=== PATIENT | male | born 1970 ===

== ENCOUNTER 2021-07-12 13:41 | Emergency (ER) | payer OTHER, SELFPAY ==
[2021-07-12 13:58] VITALS: BP 146/94; PULSE 93; RESP 16; TEMP 36.9; O2SAT 100
[2021-07-12 15:36] VITALS: BP 125/83; PULSE 88; RESP 16; TEMP 36.3; O2SAT 100
--- NOTE | 2021-07-12 18:36 | ECG_ITS ---
Measurements Intervals [place] Rate: 83 P: 48 MS: 178 QRS: -47 QRSD: 109 T: 23 QT: 378 QTc: 446 Interpretive Statements SINUS RHYTHM LEFT AXIS DEVIATION [QRS AXIS < -30] PATTERN CONSISTENT WITH PULMONARY DISEASE BORDERLINE ECG NO PREVIOUS ECG AVAILABLE FOR COMPARISON Electronically Signed On 07-13-2021 13:08:18 COPYWRITING INTERN by Richard Irving M.D.
--- NOTE | 2021-07-12 18:38 | ED.GENADULT ---
HPI - General Adult General Chief complaint: Unspecified Stated complaint: feels dehydrated Time Seen by Provider: 07/12/21 18:34 Source: patient Mode of arrival: ambulatory Limitations: no limitations History of Present Illness HPI narrative: Patient is a 50-year-old male complaining of I am dehydrated and tingling of his hands that started few days ago. 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 Patient denies any chest pain, shortness of breath, abdominal pain, nausea, vomiting, diarrhea, fever or chills. Related Data Home Medications Medication Instructions Recorded Confirmed lisinopril 10 mg PO DAILY 07/12/21 Allergies Allergy/AdvReac Type Severity Reaction Status Date / Time codeine AdvReac Mild NAUSEA Verified 07/12/21 18:35 Review of Systems Review of Systems: All systems reviewed & are unremarkable except as noted in HPI and below Constitutional: Constitutional: Denies body ache(s), Denies chills, Denies excessive sweating, Denies fatigue, Denies fever(s), Denies headache(s), Denies lethargy, Denies malaise, Denies weakness and Denies weight loss Eyes: Eyes: Denies blurry vision, Denies change in vision and Denies loss of vision ENT: Denies dizziness, Denies ear discharge, Denies headache(s), Denies lip swelling, Denies epistaxis, Denies nasal congestion, Denies neck pain, Denies throat swelling and Denies tongue swelling Cardiovascular: Cardiovascular: Denies chest pain, Denies chest pain at rest, Denies chest pain with activity, Denies diaphoresis, Denies rapid heart rate, Denies edema, Denies irregular heart rhythm, Denies lightheadedness, Denies palpitations, Denies dyspnea and Denies dyspnea on exertion Respiratory: Respiratory: Denies chest congestion, Denies cough, Denies hemoptysis, Denies dyspnea and Denies dyspnea on exertion Gastrointestinal: Gastrointestinal: Denies abdominal pain, Denies melena, Denies hematochezia, Denies diarrhea, Denies nausea, Denies vomiting and Denies hematemesis Musculoskeletal: Musculoskeletal: Denies abnormal gait, Denies deformity, Denies joint swelling, Denies limited range of motion, Denies neck pain and Denies numbness Neurologic: Denies Abnormal speech present, Denies abnormal gait, Denies confusion, Denies dizziness, Denies headache(s), Denies focal weakness, Denies loss of vision, Denies numbness, Denies Other visual disturbances, Denies Sensory deficit (Neuro) and Denies weakness Psychiatric: Psychiatric: Denies confusion, Denies depression, Denies auditory hallucinations, Denies homicidal ideation and Denies suicidal ideation Endocrine: Endocrine: Denies cold intolerance, Denies excessive sweating, Denies fatigue, Denies heat intolerance and Denies palpitations Hematologic/Lymphatic: Hematologic/Lymphatic: Denies easy bleeding and Denies easy bruising Allergic/Immunologic: Allergic/Immunologic: Denies lip swelling, Denies throat swelling and Denies tongue swelling PMFSH Family History Family History Grandparent Family history of malignant neoplasm of breast in first degree relative Other Cerebrovascular accident Diabetes mellitus Family history of allergic disorder Family history of blood dyscrasia Social History Social History Smoking status: Heavy tobacco smoker Alcohol intake: current Comments Past medical history: Hypertension Exam Const: General: cooperative, healthy appearing, comfortable, no acute distress, well developed, alert and awake; No confusion Orientation/consciousness: oriented to person, oriented to place, oriented to time, patient oriented x3 and No confusion Limitations: no limitations HENMT: Head: normal to inspection, normocephalic and atraumatic Ears: hearing grossly normal
[2021-07-12] MEDS: SODIUM CHLORIDE 0.9% IV 1,000 ML 999 ML IV CONT (19:03)
[2021-07-12 19:10] LABS: Basophils Absolute Auto 0.1 K/mm3 (0.0-0.1); Basophils Percent Auto 0.7 % (0.2-1.2); Eosinophils Absolute Auto 0.8 K/mm3 (0-0.3); Eosinophils Percent Auto 11.2 % (0-4.4); Hematocrit 46.1 % (42.0-52.0); Hemoglobin 15.1 g/dL (14.0-18.0); Immature Granulocyte Absolute 0.01 K/mm3 (0.00-0.031); Immature Granulocyte Percent A 0.1 % (0-0.5); Lymphocytes Absolute Auto 2.51 K/mm3 (0.9-3.2); Lymphocytes Percent Auto 34.3 % (18.3-44.2); Mean Corpuscular HGB Conc 32.8 g/dl (32-36); Mean Corpuscular Hemoglobin 29.7 pg (26-34); Mean Corpuscular Volume 90.6 fl (80-100); Mean Platelet Volume 8.9 fl (7.4-10.4); Monocytes Absolute Auto 0.6 K/mm3 (0.1-0.6); Monocytes Percent Auto 7.8 % (2.6-8.5); Neutrophils Absolute Auto 3.4 K/mm3 (1.3-6.7); Neutrophils Percent Auto 45.9 % (45.5-73.1); Platelet Count Result 286 k/mm3 (150-375); Red Blood Count 5.09 M/mm3 (4.6-6.20); Red Cell Distribution Width 12.6 % (11.5-14.5); White Blood Count 7.3 K/mm3 (4.5-10.0)
[2021-07-12 19:20] LABS: Alanine Aminotransferase 25 U/L (4-50); Albumin Level 4.3 g/dL (3.5-5.1); Alkaline Phosphatase 93 U/L (38-126); Anion Gap 6 mmol/L (8-16); Aspartate Amino Transferase 32 U/L (17-59); Bilirubin,Total 0.6 mg/dL (0.2-1.3); Blood Urea Nitrogen 17 mg/dL (9-20); Calcium 9.1 mg/dL (8.4-10.2); Carbon Dioxide 30 mmol/L (22-30); Chloride 101 mmol/L (98-107); Estimated CRCL calculation 74 ml/min; Estimated Glomerular Filt Rate > 60; Glucose 110 mg/dL (65-110); Potassium 3.4 mmol/L (3.4-5.0); Sodium 137 mmol/L (137-145)
[2021-07-12 21:00] VITALS: BP 147/95; PULSE 81; RESP 16; O2SAT 100
== END 2021-07-12 21:05 | disposition home or self-care (01) ==
LOC: ANHED 19:57
PROVIDERS: Emergency Provider Emergency Medicine
DX: E86.0 Dehydration (principal); F43.9 Reaction to severe stress, unspecified; F17.200 Nicotine dependence, unspecified, uncomplicated; R94.31 Abnormal electrocardiogram [ECG] [EKG]
CPT/HCPCS: 36415; 80053; 85025; 93005; 96360; 96372; 99283; J1100; J7030

== ENCOUNTER 2024-10-21 01:09 | Emergency (ER) | payer BC, SELFPAY ==
[2024-10-21 01:13] VITALS: BP 129/80; PULSE 96; RESP 18; O2SAT 97
[2024-10-21 01:27] VITALS: BP 129/80; PULSE 94; RESP 18; TEMP 36.5; O2SAT 97
--- OUTSIDE RECORDS SUMMARY | 2024-10-21 01:38 | XMS_ITS | Patient Health Record ---
Author Organization Formerly [facility] Address [address] [place] [address] Care Team Providers Care Marble Mason Name Role Phone Cee Lau Primary Care Provider [phone] Tera Valentino Unavailable [phone] Kierra Jimenez Unavailable [phone] Shirin Bustillos Unavailable [phone] Allergies No Known Allergies Results Component Value Reference Range Notes Hepatitis C Virus Antibody w /Rflx to Quantitative Real-time PCR ([id number]) (Not yet reviewed by provider) Interpretation: Performing Lab:[facility] [address] [facility], Phone - [phone], Director - [facility] Notes/Report: HCV Ab Non Reactive Non Reactive Interpretation: Not infected with HCV unless early or acute infection is suspected (which may be delayed in an immunocompromised individual), or other evidence exists to indicate HCV infection. Hepatitis B Surface Antigen (HBsAg Screen) (Not yet reviewed by provider) Interpretation: Performing Lab:[facility] [address] [facility], Phone - [phone], Director - [facility] Notes/Report: HBsAg Screen Negative Negative TSH+Free T4* (Not yet review ed by provider) Interpretation: Performing Lab:[facility] [address] [facility], Phone - [phone], Director - [facility] Notes/Report: TSH 1.580 0.450-4.500 uIU/mL T4,Free(Direct) 1.20 0.82-1.77 ng/dL Hemoglobin A1c* (Not yet rev iewed by provider) Interpretation: Performing Lab:[facility] [address], [place], Phone - [phone], Director - [facility] Notes/Report: Hemoglobin A1c 5.6 4.8-5.6 % . Prediabetes: 5.7 - 6.4 Diabetes: >6.4 Glycemic control for adults with diabetes: <7.0 Lipid Panel* (Not yet review ed by provider) Interpretation: Performing Lab:[facility] [place], [address] [facility], Phone - [phone], Director - [facility] Notes/Report: Cholesterol, Total 187 100-199 mg/dL Triglycerides 116 0-149 mg/dL HDL Cholesterol 56 >39 mg/dL VLDL Cholesterol Kalin 21 5-40 mg/dL LDL Chol Calc (NIH) 110 0-99 mg/dL 12 Panel Urine Drug Screen Reviewed date:10/08/2024 12:00:13 PM Interpretation: Performing Lab: Notes/Report: THC pos MAXIMUS neg MOP (OPI) neg AMP neg MET pos BAR neg BZO neg MDMA neg MTD neg OXY neg PCP neg BUP neg Breathalyzer Reviewed date:10/08/2024 02:11:40 PM Interpretation: Performing Lab: Notes/Report: OLIVER o.oo QuantiFERON-TB Gold Plus ([id number]) (Not yet reviewed by provider) Interpretation: Performing Lab:[facility] [place], [address] [facility], [place], Phone - [phone], [facility] Notes/Report: QuantiFERON Incubation Incubation performed. QuantiFERON-TB Gold Plus Negative Negative No response to M tuberculosis antigens detected. Infection with M tuberculosis is unlikely, but high risk individuals should be considered for additional testing (ATS/IDSA/CDC Clinical Practice Guidelines, 2017). The reference range is an Antigen minus Nil result of <0.35 IU/mL. Chemiluminescence immunoassay methodology QuantiFERON Criteria QuantiFERON-TB Gold Plus is a qualitative indirect test for M tuberculosis infection (including disease) and is intended for use in conjunction with risk assessment, radiography, and other medical and diagnostic evaluations. The QuantiFERON-TB Gold Plus result is determined by subtracting the Nil value from either TB antigen (Ag) value. The Mitogen tube serves as a control for the test. QuantiFERON TB1 Ag Value 0.11 QuantiFERON TB2 Ag Value 0.12 QuantiFERON Nil Value 0.10 QuantiFERON Mitogen Value >10.00 CBC With Differential/Platel et* (Not yet reviewed by provider) Interpretation: Performing Lab:[facility] [place], [address] [facility], Phone - [phone], Director - [facility] Notes/Report: WBC 8.1 3.4-10.8 x10E3/uL RBC 4.76 4.14-5.80 x10E6/uL Hemoglobin 13.9 13.0-17.7 g/dL Hematocrit 43.0 37.5-51.0 % MCV 90 79-97 fL MCH 29.2 26.6-33.0 pg MCHC 32.3 31.5-35.7 g/dL RDW 12.4 11.6-15.4 % Platelets 294 150-450 x10E3/uL Neutrophils 47 Not Estab. % Lymphs 37 Not Estab. % Monocytes 8 Not Estab. % Eos 7 Not Estab. % Basos 1 Not Estab. % Neutrophils (Absolute) 3.8 1.4-7.0 x10E3/uL Lymphs (Absolute) 3.0 0.7-3.1 x10E3/uL Monocytes(Absolute) 0.7 0.1-0.9 x10E3/uL Eos (Absolute) 0.6 0.0-0.4 x10E3/uL Baso (Absolute) 0.1 0.0-0.2 x10E3/uL Immature Granulocytes 0 Not Estab. % Immature Grans (Abs) 0.0 0.0-0.1 x10E3/uL CMP 14 Comprehensive Metabol ic Panel* (Not yet reviewed by provider) Interpretation: Performing Lab:[facility] [place], [address] [facility], Phone - [phone], Director - [facility] Notes/Report: Glucose 95 70-99 mg/dL BUN 15 6-24 mg/dL Creatinine 0.88 0.76-1.27 mg/dL eGFR 103 >59 mL/min/1.73 BUN/Creatinine Ratio 17 9-20 Sodium 141 134-144 mmol/L Potassium 4.9 3.5-5.2 mmol/L Chloride 106 96-106 mmol/L Carbon Dioxide, Total 21 20-29 mmol/L Calcium 9.2 8.7-10.2 mg/dL Protein, Total 6.6 6.0-8.5 g/dL Albumin 4.3 3.8-4.9 g/dL Globulin, Total 2.3 1.5-4.5 g/dL Bilirubin, Total 0.3 0.0-1.2 mg/dL Alkaline Phosphatase 117 44-121 IU/L AST (SGOT) 17 0-40 IU/L ALT (SGPT) 12 0-44 IU/L HIV Screen *HIV 1, 2 Ab, p24 Ag ([id number]) (Not yet reviewed by provider) Interpretation: Performing Lab:[facility], [address] [facility], [place], Phone - [phone], Director - [facility] Notes/Report: HIV Ab/p24 Ag Screen Non Reactive Non Reactive HIV-1/HIV-2 antibodies and HIV-1 p24 antigen were NOT detected. There is no laboratory evidence of HIV infection. HIV Negative Reason For Referral No Information Medications Medication SIG (Take, Route, Frequency, Duration) Notes Start Date End Date Status OLANZapine 5 MG 1 tablet Orally at b edtime for 30 days Active Melatonin 5 MG 1 tablet at bedtime as needed Orally Once a day for 30 days 10/08/2024 Active buPROPion HCl ER (XL) 150 MG 1 tablet in the morning Orally Once a day for 30 days Active traZODone HCl 50 MG 1 tablet at bedtime as needed Orally Once a day for 30 days Active amLODIPine Besylate 10 MG 1 tablet Orall y Once a day for 30 days Active Nicotine Polacrilex 4 MG 1 lozenge as ne eded for nicotine cravings Mouth/Throat Up to once per hour (maximum of 15 lozenges per day) for 7 days 10/08/2024 Active hydrOXYzine HCl 25 MG 1-2 capsules Orall y every 4 hours as needed for anxiety, agitation, or inability to sleep. Do not given within 4 hours of diphenhydramine for 5 days 10/08/2024 Activ e Ketoconazole 2 % apply on both dry an d clean feet Externally Once a day for 14 days 10/15/2024 Active Multi Vitamin - 1 tablet Orally Once a day for 30 days 10/08/2024 Active Social History Tobacco Use: Social History Observation Description Date Details (start date - stop date) Current Smoker NA - NA Sex Assigned At : Social History Observation Description Sex Assigned At Male PRAPARE Question Answer Notes Date Completed/Updated: 10/08/2024 What is your current housing situation? I do not have housing (staying with others, in a hotel, in a intermediate, living outside on the street, on a beach, or in a park) Are you worried about losing your housing? Yes What is the highest level of school that you have finished? Less than a high school degree What is your current work situation? Oth erwise unemployed but not seeking work (ex. 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 Check all that apply Food,Medicine or any health care (medical, dental, mental health or vision),Other (please write in notes) Has lack of transportation k ept you from medical appointments, meetings, work or from getting things needed for daily living? Yes, it has kept me from medical appointments or from getting my medications,Yes, it has kept me from non-medical meetings, appointments, work, or getting things needed for daily living How often do you see or talk to people that you care about and feel close to? (For example: talking to friends on the phone, visiting friends or family, going to episcopalian or club meetings) 1 or 2 times a week How stressed are you? Stress is when someone feels tense, nervous, anxious, or can\t sleep at night because their mind is troubled Quite a bit In the past year have you sp ent more than 2 nights in a row in a fdc, assisted, halfway center, or juvenile correctional facility? Yes What was your release date? 09/19/2024 Are you a refugee? I choose not to answer this q uestion What country are you from? I choose not to answe r this question Do you feel physically and e motionally safe where you currently live? No In the past year, have you b een afraid of your partner or ex-partner? Yes PRAPARE Score: 17 Enabling Services Provided? Yes Please specify Case Management Appointment Made Tobacco Control (Standard) Question Answer Notes Tobacco use: Current smoker Problems Problem Type SNOMED Code ICD Code Onset Dates Problem Status W/U Status Risk Notes Problem Hypertension (27974810) Hypertension (I10) Active confirmed Problem Posttraumatic stress disorder (04321681) PTSD (post-traumatic stress disorder) (F43.10) Active confirmed Problem Overweight (929300505) Over weight (E66.3) Active confirmed Problem Severe recurrent major depression without psychotic features (46187674) MDD (major depressive disorder), recurrent episode, severe (F33.2) Active confirmed Problem Methamphetamine abuse (574809988) Methamphetamine abuse (F15.10) Active confirmed Problem Adult health examination (987787098) Adult general medical exam (Z00.00) Active confirmed Problem Tobacco user (563917266) Nicotine dependence with current use (F17.200) Active confirmed Problem Schizophrenia (55449877) Unspecified schizophrenia, unspecified condition (F20.9) Active confirmed Problem Stimulant dependence (133574149) Amphetamine use disorder, 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) Active confirmed Vital Signs Heart Rate 84 /min 10/15/2024 Temperature 97.9 degrees Fahrenheit 10/15/2024 Respiratory Rate 20 /min 10/15/2024 Blood pressure diastolic 80 mm Hg 10/15/2024 Oximetry 98 % 10/15/2024 Height 72 in 10/15/2024 Blood pressure systolic 122 mm Hg 10/15/2024 Weight 185.0 lbs 10/15/2024 BMI 25.09 kg/m2 10/15/2024 Encounters Encounter Location Date Provider Diagnosis [facility] [place] [address] 10/08/2024 Cee Lau Adult general medica l exam Z00.00 and Nicotine dependence with current use F17.[address] [address] 10/08/2024 Shirin Busitllos PTSD (post-traumatic stress disorder) F43.10 ; MDD (major depressive disorder), recurrent episode, severe F33.2 and Methamphetamine abuse F15.[address] [place] [address] 10/10/2024 Kierra Jimenez Unspecified schizophrenia, unspecified condition F20.9 ; PTSD (post-traumatic stress disorder) F43.10 ; MDD (major depressive disorder), recurrent episode, severe F33.2 and Amphetamine use disorder, moderate F15.20 [facility] [address] [place] [address] 10/15/2024 Cee Lau Over weight E66.3 ; Tinea pedis of both feet B35.3 ; Adult general medical exam Z00.00 ; Screening for diabetes mellitus Z13.1 ; Screening for metabolic disorder Z13.228 ; Exposure to potential infection Z20.9 ; Screening for thyroid disorder Z13.29 and Nicotine dependence with current use F17.[address] [place] [address] 07/31/2024 Tera Valentino [facility] [address] [place] [address] [place] [address] 10/15/2024 Cee Lau Assessments Encounter Date Diagnosis (ICD Code) Assessment Notes Treatment Notes Treatment Clinical Notes Section Notes 10/15/2024 Over weight (ICD-10 - E66.3) 10/15/2024 Tinea pedis of both feet (ICD-10 - B35.3) 10/10/2024 PTSD (post-traumatic stress disorder) (ICD-10 - F43.10) 10/10/2024 Unspecified schizophrenia, unspecified condition (ICD-10 - F20.9) Restart previous medications for mental health. Continued Amlodapine order sent from previous PCP appointment. Continue services as scheduled. Labs completed recently. May self-administer medications or be administered own oral medications per [place] protocols. Provided informed consent with understanding of side effects, adverse effects, risks and benefits as well as alternative treatments as previously discussed and with the above recommended medications & other aspects of the treatment program. Agrees to return sooner if symptoms worsen or suicidal or homicidal ideations occur. 10/08/2024 PTSD (post-traumatic stress disorder) (ICD-10 - F43.10) 10/08/2024 MDD (major depressive disorder), recurrent episode, severe (ICD-10 - F33.2) 10/08/2024 Adult general medical exam (ICD-10 - Z00.00) Admit to the Mental Health/Crisis Residential Unit and initiate standing/protocol orders: The following PRN medications may be self-administered by patients under the supervision of approved staff or administered by nursing staff: Ibuprofen 200mg, 2-4 tablets by mouth (with food) every 6 hours as needed for pain (unless on lithium). (NOTE: Ibuprofen and acetaminophen may be given together, but alternating is recommended for continuous pain relief. Guaifenesin 400 mg, 1 tablet by mouth every four hours as needed for cough and chest congestion (take with large glass of water). Loratadine 10 mg, 1 tablet by mouth daily as needed for allergies, watery itchy eyes, or sinus drainage. Throat Lozenges, up to 4 tablets by mouth every three to four hours as needed for sore throat. Antacid tablets, 1-2 tablets by mouth every one to two hours as needed for indigestion or heart burn. If the client prefers liquid, could use: Liquid Antacid : 1 ounce by mouth up to four times daily as needed for indigestion or heartburn Omeprazole 20mg, 1 capsule by mouth once daily for 14 days for frequent heartburn (frequent heartburn is more than 2 episodes per week). Do not exceed 14 days. Do not give to client already taking a proton-pump inhibitor: esomeprazole (Nexium), lansoprazole (Prevacid), pantoprazole (Protonix), rabeprazole (Aciphex), dexlansoprazole (Dexilant) Zofran ODT disintegrating (under the tongue) 4 mg, 1-2 tablets every 8 hours as needed for nausea/vomiting. Milk of Magnesia (MOM): 1 ounce (30 milliliters) by mouth every day as needed for constipation. OR Miralax: Stir and fully dissolve 17 grams (1 packet or 1 capful to measured line) in any 4 to 8 ounces of beverage then drink once daily for constipation. Do not use for more than 7 days. OR Docusate 100 mg, 1 capsule twice daily as needed for constipation Hydrocortisone 1% Cream, apply topically (to the skin) to the affected area up to three times daily as needed for itching or inflammation (avoid eyes and genitals). 2% Antifungal Cream, apply topically (to the skin) as directed as needed to affected areas for athlete's foot or jock itch. Triple Antibiotic Ointment, apply topically (to the skin) up to three times daily as needed for minor cuts and scrapes. Carmex or Chapstick, apply topically (to the skin) as needed for chapped lips and skin. Orajel, apply to affected areas as needed for mouth or tooth pain. Lubricating Eye Drops, instill 1-2 drops to the affected eye(s) as needed for dry/irritated eye(s). Hemorrhoid medications, apply to affected area according to directions as needed for hemorrhoid discomfort and itch. Nix (Permethrin 1%) cream 2 ounces, apply topically (to the skin) as directed as needed for head lice. Sunscreen 30 SPF, Apply to exposed skin prior to exposure to sun. The following PRN medications must be approved by nursing staff before self-administratio n by patients: Diphenhydramine 25 mg, 2 tablets by mouth every 4 hours as needed for allergic reaction or itchy rash. Caution: Do not use hydroxyzine within 4 hours of diphenhydramine and vice versa. Loperamide 2 mg capsules, may give two capsules by mouth for the initial dose, followed by one capsule up to 3 times a day as needed for diarrhea. Acetaminophen 500 mg, 1 - 2 tablets by mouth every six hours as needed for pain. (NOTE: Ibuprofen and acetaminophen may be given together, but alternating is recommended for continuous pain relief). Oxygen-May administer oxygen 2L/min via nasal cannula if O2 saturation is less than 92%, AND client complains of shortness of breath. Target O2 saturation is 94-98%. Caution: Remember too much oxygen can be detrimental to a client with COPD. Oxygen is a drug and should be delivered by trained staff only. Nurses may remove superficial splinters and sutures from skin lacerations. May apply gauze or bandages to any weeping wounds. Contact nursing if there is pus, a foul odor, increased pain/redness/swell ing, or if soaking through bandages. 10/08/2024 Nicotine dependence with current use (ICD-10 - F17.200) 10/08/2024 Methamphetamine abuse (ICD-10 - F15.10) 10/10/2024 MDD (major depressive disorder), recurrent episode, severe (ICD-10 - F33.2) 10/15/2024 Adult general medical exam (ICD-10 - Z00.00) 10/15/2024 Screening for diabetes mellitus (ICD-10 - Z13.1) 10/10/2024 Amphetamine use disorder, moderate (ICD-10 - F15.20) 10/15/2024 Screening for metabolic disorder (ICD-10 - Z13.228) 10/15/2024 Exposure to potential infection (ICD-10 - Z20.9) 10/15/2024 Screening for thyroid disorder (ICD-10 - Z13.29) 10/15/2024 Nicotine dependence with current use (ICD-10 - F17.200) 10/08/2024 Other Clinician met w ith client to assess needs for residential services. Clinician gathered information regarding historical presentation of mental health and substance use symptoms including withdrawal, HIV Risk assessment, psychiatric hospitalization history and presenting concern. Clinician conducted PHQ9 and CSSRS assessments as well as social drivers of health screening for the purposes of identifying additional service needs. Plan Of Treatment Pending Test Test Name Order Date Low Dose CT: Lung Cancer Screening 10/15 Future Test Test Name Order Date HIV Screen *HIV 1, 2 Ab, p24 Ag ([id number]) 10/08/2024 CBC With Differential/Platelet* 10/09/19 25 CMP 14 Comprehensive Metabolic Panel* QuantiFERON-TB Gold Plus ([id number]) 2024 Hemoglobin A1c* 10/15/2024 Hepatitis B Surface Antigen (HBsAg Scree n) 10/15/2024 Hepatitis C Virus Antibody w/Rflx to Max ntitative Real-time PCR ([id number]) 10/15/2024 TSH+Free T4* 10/15/2024 Lipid Panel* 10/15/2024 Insurance Providers Payer Name Payer Address Payer Phone Subscriber Number Group Number Insured Name Patient Relationship to Insured Coverage Start Date Coverage End Date [facility] [address] [place] [phone] [id number] Joe Feng Self - patient is the insured 5 [facility] [address] [place] [phone] [id number] Joe Feng Self - patient is the insured 5 [facility] [employer] DELIVERY [employer]ERK [address] [place] [phone] [id number] Feng, Joe Self - patient is the insured 5 Medical (General) History Medical History History ICD Code Hypertension Surgical History Surgery Date(Month/Year) Gastric Bypass 2023 Hospitalization History Reason Date(Month/Year) poisoning 2023
--- OUTSIDE RECORDS SUMMARY | 2024-10-21 01:38 | XMS_ITS | Continuity of Care Document ---
Author Organization [facility] [employer] Address [address] [place] [address] Phone Care Team Providers Care Signals Analyst Name Role Phone Rosetta Gómez MD Unavailable Unavailable Allergies, Adverse Reactions, Alerts Substance Reaction Status Criticality No Known Allergies Active No Inform ation Medications Medication Instructions Dosage Effective Dates (start - stop) Status Comments LISINOPRIL-HCTZ 10-12.5 MG TAB TAKE 1 TABLET BY MOUTH EVERY DAY - Active Vitamin B-12 1,000 mcg tablet take 1 tablet by mouth once daily - Active Vitamin D3 25 mcg (1,000 unit) capsule take 1 capsule by mouth once daily - Active omeprazole 20 mg capsule,delayed release take 1 capsule by oral route every day 30 minutes to 1 hour before a meal 20 MG - Active Procedures Procedure Date IMMUN ADMIN (INC PERCUTANEOUS) SINGLE, F IRST INJ TDAP INTRAMUSCULAR USE CBC, INC PLATELETS AND DIFFERENTIAL CHLAMYDIA AMPLIFIED PROBE TECHNIQUE NEISERRIA GONORRHOEAE, AMPLIFIED PROBE T ECHNIQUE COMPREHEN METABOLIC PANEL CMP 0 HIV-1 AG W/HIV-1 & HIV-2 AB LIPID PANEL THYROID STIMULATION HORMONE(TSH) 2019 VITAMIN B12 (SERUM) VITAMIN D, 25-HYDROXY BP OFFICE/OUTPATIENT VISIT EST 20 OFFICE [id number] BODY MASS INDEX DOCD SYST BP >= 140 MM HG6 IT DIAST BP >= 90 MM HG Advance Directives Directive Yes / No Effective Date File Name Life Support Not Answered N/A N/A Intubation Not Answered N/A N/A Antibiotics Not Answered N/A N/A IV Fluid Support Not Answered N/A N/A Tube Feed Not Answered N/A N/A Other Directive N/A N/A WARNING:The information contained in this section is historical and is provided for information only and does not constitute a legal document or any assurance that the information is still accurate. Please verify the information with the espinoza of the legal document before using it for clinical purposes. Encounters Encounter Description Practice Location Reason(s) For Visit Diagnoses Date Provider Providers Copied on Encounter [employer], [address], [place], [place], [id number] , tel: [phone] [place] No Information 1 Rico Sargent. [address] [place], [place], [id number] , . tel: [phone] [facility] [facility], [address], [place], [place], [address] , tel: [phone] [place] No Information 1 Rico Sargent. [address] [place], [place], [id number] , . tel: [phone] [employer] [facility], [address], [place], [place], [address] , tel: [phone] [place] No Information 0 Rico Sargent. [address] [place], [place], [id number] , [place]. tel:[phone] OFFICE/OUTPA TIENT VISIT EST [employer] [facility], [address], [place], [place], [address] , tel: [phone] [place] Benign essential hypertensionHyperlip idemia, unspecified hyperlipidemia typeAdult general medical examFatigue, unspecified typeScreening for STDs (sexually transmitted diseases) 0 Rico Sargent. [address] [place], [place], [id number] , . tel:[phone] Referring Provider: Rosetta Keyes, [address] [place], [address] . tel:[phone] [facility] [address], [place], [place], [address] , [place] tel: [phone] [place] Telehealth (chief complaint)N ew Patient (chief complaint) Benign essential hypertensionHyperlip idemia, unspecified hyperlipidemia typeGastroesophageal reflux disease, esophagitis presence not specifiedBody mass index (BMI) 28.0-28.9, adultBlood in stool 0 Rico Sargent. [address] [place], [place], [id number] , [place]. tel: [phone] Referring Provider: Rosetta Keyes, [address] [place], [address] . tel:[phone] Family History Family Member Type Diagnosis Age At Onset Paternal grandfather Problem alcoholism Mother Problem malignant neoplasm of lung Paternal grandmother Problem alcoholism Mother Problem Obesity Maternal grandmother Problem breast cancer Sister Problem Obesity Maternal grandfather Problem alcoholism Mother Problem hypertension Mother Problem Hearing deficiency Maternal grandmother Problem alcoholism Paternal aunt Problem Diabetes mellitus Sister Problem Thyroid disorder Father Problem Intracranial aneurysm (Cause Of ) Paternal aunt Problem breast cancer Mother Problem Cancer, brain (Cause Of Deat h) Mother Problem hypercholesterolemia Mother Problem Thyroid disorder Immunizations Vaccine Date Status Comments Tdap administered Source: [facility] Record Payers Payer name Insurance type Covered democrat ID Authoriza tion(s) [facility] [id number] Social History Type Description Quantity Date Captured Comments Alcohol Use Details Unknown Caffeine Use Details Unknown Tobacco Use Status Smoking Status No Information Sex Male Chief Complaint And Reason For Visit No Information Reason For Referral Reason For Referral No Information Plan Of Treatment Date Type Action Status Goal Tobacco cessation counseling completed Goal Dietary management education , guidance, and counseling completed Referral Referred To: Thee Walter MD [address] [place] [address], [phone] Ordered: Referrals: Gastroenterology. Thee Walter MD. Consult - Level 1 ordered History Of Present Illness Encounter Date Complaint History Of Prese nt Illness New Patient Pt. here to get established.Previously was seeing Dr. Boateng in [place] with last visit within past couple of months. Exercise routine: active at work with physical labor but no other regular exerciseLast tetanus over 10 years ago.Has HTN on lisinopril. No CP or SOB. Home BP's elevated- had reading of 139/109 earlier today and repeat later was 157/117. States he was anxious when he checked his last BP. Compliant with med. Previously had been on lisinopril/hctz. Has GERD on omeprazole- has been having more abdominal pain over past 8 months and was referred to GI and had one visit with GI who planned to do upper endoscopy but states he did not f/u there as I lost kimberly in my doctor and want to start fresh with a new GI doc. States he has intermittent loose stools and occasionally notices bright red blood in stool when wiping. No dark tarry stools. No prior colonoscopy or EGD.Has hyperlipidemia and was advised to work on low fat diet but recently not following low fat diet as closely.Has had problems with anxiety and depression in the past treated with meds in the past but not for past several years. Currently feels he is coping with stressors fairly well and no SI's or HI's. 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 NO recent vision changes. Telehealth Telehealth visit done today through [employer] [facility] as a facetime visit with pt's verbal consent due to restrictions from the COVID 19 pandemic. All issues as below were discussed and addressed but no physical exam was performed unless allowed by visual confirmation on the video visit. This was performed while I was in my office in [place], [place], and pt. was in her home in [place], [place]. Functional Status Date Functional Assessmen t No Information Instructions Date Instruction Additional Infor maria elena Refer to GI for EGD and colonosc opy Related to Blood in stool Stop lisinoprilStart mylifonftr64/hctz 12.5mg - 1 tab dailyCheck labs in 4 weeksfollow up in the office after labs in 4 weeks Try to increase regular exercise and try to limit salt intake. Monitor home BP's and call if BP consistently running above 140/90. Related to Benign essential hypertension check fasting labs i n 4 weeksTry to work on low fat diet and increase regular exercise with goal of walking at least 30 min. 3 to 5 times per week. Related to Hyperlipidemia, unspecified hyperlipidemia type continue omeprazoleR efer to GI for EGD and colonoscopy Related to Gastroesophageal reflux disease, esophagitis presence not specified Exercise Dietary management e ducation, guidance, and counseling Related to Body mass index (BMI) 28.0-28.9, adult Assessments Type Assessment Date No Information Patient Care Teams Name Effective Dates (start - stop) Status Members No Information
--- OUTSIDE RECORDS SUMMARY | 2024-10-21 01:38 | XMS_ITS | Clinical Summary ---
Author Organization [facility] Address [address] [place] [address] Care Team Providers Care Tag Machine Operator Name Role Phone Unknown, Notinfile Primary Care Provider Unavail able Allergies No known active allergies Medications lisinopriL (PRINIVIL,ZESTR [place]) 20 mg tablet Take 1 tablet (20 mg total) by mouth daily 30 tablet 4 Active hydroCHLOROthia zide (MICROZIDE) 12.5 mg capsule Take 1 capsule (12.5 mg total) by mouth daily 30 capsule 4 Active sucralfate (CARAFATE) suspension 1 gram/10 mL Take 10 mL (1 g total) by mouth 4 (four) times a day (with meals and nightly) 2400 mL [address] (PROTONIX) 40 mg EC tablet Take 1 tablet (40 mg total) by mouth 2 (two) times a day 120 tablet 4 Active famotidine (Pepcid) 20 mg tabletIndicatio ns:Heartburn Take 1 tablet (20 mg total) by mouth nightly as needed for heartburn 30 tablet 5 Active Active Problems Problem Noted Date Diagnosed Date Esophagitis 07/28/2023 Uncontrolled hypertension 07/28/2023 Accidental ingestion of substance 07/27/2023 Accidental ingestion of substance, initial encou nter 07/27/2023 Surgical History Surgery Date Site/Laterality Comments ORAL SURGERY Medical History Medical History Date Comments Hypertension Social History Tobacco Use Types Packs/Day Years Used Date Smoking Tobacco: Never Assessed [facility] Utilities Answer Date Recorded In the past 12 months has th e electric, gas, oil, or water company threatened to shut off services in your home? Yes 07/30/2023 Social Connection and Isolation Panel [NHANES] A nswer Date Recorded In a typical week, how many times do you talk on the phone with family, friends, or neighbors? Three times a week 07/30/2023 How often do you get togethe r with friends or relatives? Three times a week 07/30/2023 How often do you attend chur ch or mu-ism services? Never 07/30/2023 Do you belong to any clubs o r organizations such as mandaen groups, unions, fraternal or athletic groups, or school groups? No 07/30/2023 How often do you attend meet ings of the clubs or organizations you belong to? Never 07/30/2023 Are you , , di vorced, , never , or living with a partner? 07/30/2023 AUDIT-C Answer Date Recorded Q1: How often do you have a drink containing alc ohol? Monthly or less 07/28/2023 Q2: How many drinks containi ng alcohol do you have on a typical day when you are drinking? 1 or 2 07/28/2023 Q3: How often do you have si x or more drinks on one occasion? Never 07/28/2023 Overall Financial Resource Strain (CARDIA) Answe r Date Recorded How hard is it for you to pa y for the very basics like food, housing, medical care, and heating? Somewhat hard 07/30/2023 Hunger Vital Sign Answer Date Recorded Within the past 12 months, y ou worried that your food would run out before you got the money to buy more. Sometimes true Within the past 12 months, t he food you bought just didn't last and you didn't have money to get more. Sometimes true PRAPARE - Transportation Answer Date Re corded In the past 12 months, has l ack of transportation kept you from medical appointments or from getting medications? No 07/06 In the past 12 months, has l ack of transportation kept you from meetings, work, or from getting things needed for daily living? No 07/30/2023 Housing Stability Vital Sign Answer Emre e Recorded In the last 12 months, was t here a time when you were not able to pay the mortgage or rent on time? Yes 07/30/2023 In the last 12 months, how many places have you lived? 2 07/30/2023 In the last 12 months, was t here a time when you did not have a steady place to sleep or slept in a skilled nursing (including now)? Yes 07/30/2023 Personal Safety Answer Date Recorded Have you ever been in or are you currently in a harmful physical or emotional relationship or is someone making you feel afraid or unsafe? Denies 05/15/2024 Sex and Gender Information Value Date Recorded Sex Assigned at Not on file Legal Sex Male 3:11 AM EATING DISORDER SPECIALIST Gender Identity Male 07/27/2023 1:18 PM CDT Sexual Orientation Not on file Obstetrics History Last Filed Vital Signs Vital Sign Reading Time Taken Comments Blood Pressure 165/101 05/16/2024 3:30 AM EATING DISORDER SPECIALIST Pulse 75 05/16/2024 3:30 AM EATING DISORDER SPECIALIST Temperature 36.6 C (97.9 F) 05/15/2024 8:45 PM EATING DISORDER SPECIALIST Respiratory Rate 17 05/16/2024 3:30 AM EATING DISORDER SPECIALIST Oxygen Saturation 97% 05/16/2024 3:30 AM EATING DISORDER SPECIALIST Inhaled Oxygen Concentration - - Weight 74.8 kg (165 lb) 05/15/2024 8:45 PM EATING DISORDER SPECIALIST Height 182.9 cm (6') 05/15/2024 8:45 PM EATING DISORDER SPECIALIST Body Mass Index 22.38 05/15/2024 8:45 PM EATING DISORDER SPECIALIST Plan of Treatment Health Maintenance Due Date Last Done Comments Colon Cancer Screening-Colonoscopy 1972 Depression Screening 1972 Hepatitis C Screening 1972 Prostate Cancer Screening-PSA 1972 Hepatitis B Screening 1990 Regular Well Visit/Exam 18-64 1990 DTaP/Tdap/Td Vaccine (1 - Tdap) 11/24/2000 1 Zoster Vaccine (1 of 2) 2022 Influenza Vaccine (Season Ended) 2025 Pneumococcal vaccine <65 Aged Out No longer eligible based on patient's age to complete this topic Insurance [facility] PLAN [place]ODY [id number] Advance Directives For more information, please contact: [phone] * Full Code (Latest Code Status on File) Date Activated Date Inactivated Comments 07/28/2023 11:01 AM 07/30/2023 7:10 PM * Full Code Date Activated Date Inactivated Comments 07/27/2023 8:48 PM 07/28/2023 11:01 AM Care Teams Tag Machine Operator Relationship Specialty Start Date End Date Unknown, Notinfile PCP - General 01/15/19
--- OUTSIDE RECORDS SUMMARY | 2024-10-21 01:38 | XMS_ITS | CONTINUITY OF CARE DOCUMENT ---
Author Name kary preston Address Unknown Organization [facility] Address [address] [place] [address] [address] [place] [address] Phone [phone] Care Team Providers Care Detail Drafter Name Role Phone Donald Kate MD Unavailable MAYNOR ROTHMAN MD Unavailable [phone] MAYNOR ROTHMAN MD Unavailable [phone] PROBLEMS Condition Status Date Provider Notes Shortness of breath (SOB) active Giacomo Zimmer Hypertension active Donald Kate MD Chest pain active Donald Kate MD Abnormal EKG active Donald Kate MD Tobacco abuse, quit active Donald Neville ENCOUNTERS Date Type Provider Location Encounter Diag nosis - In-person encounter Office Visit Donald Kate MD [place] [facility] - In-person encounter Office Visit Donald Kate MD [place] [facility] HypertensionChest painAbnormal EKGTobacco abuse, quit VITAL SIGNS Date Observation Value Provider Body Mass Index (Ratio) 30.24 kg/m2 Kimberly Kate MD blood pressure, cuff size regular Simone Hu blood pressure, diastolic 98 mm[Hg] Simone Hu blood pressure, systolic 142 mm[Hg] Elsa Hu oxygen saturation, oximetry 97 % Radha Hu respiratory rate E&M 20 /min Radha Hu pulse rate 92 /min Radha mcintosh weight E&M 223 [lb_av] Radha mcintosh height E&M 72 [in_i] Radha mcintosh Body Mass Index (Ratio) 29.56 kg/m2 iKmberly Kate MD blood pressure, diastolic 90 mm[Hg] Ke lennyi Aydin blood pressure, systolic 112 mm[Hg] Michelle Perrin blood pressure, cuff size large Ke lennyeve Perrin oxygen saturation, oximetry 98 % Clary Perrin respiratory rate E&M 20 /min Clary martell pulse rate 93 /min Clary herreraer weight E&M 218 [lb_av] Clary herreraer height E&M 72 [in_i] Clary herreraer ALLERGIES No Known Drug Allergies HISTORY OF MEDICATION USE Medication Status Instructions Dates Provider Indications Com ments HYDROCHLOROTHIAZIDE 12.5 MG ORAL CAPSULE active take one pill a day Clary Perrin OMEPRAZOLE 20 MG ORAL CAPSULE DELAYED RELEASE active take one pill a day Clary Perrin LISINOPRIL 10 MG ORAL TABLET active take one pill a day Clary Perrin SOCIAL HISTORY Date Observation Value Provider social history E&M S moking History: P atient currently smokes every day. Donald Kate MD social history reviewed E&M revi ewed - no changes required Donald Kate MD number of years as a smoker 20 a Radha Hu smoking history, tot al pack/day 1/2 ppd Radha Hu cigarette use yes Radha kelly smoking status Current every day smoker C jay Hu number of grandchildren Donald Kate MD social history reviewed E&M revi ewed - no changes required Donald Kate MD number of years as a smoker 20 a Clary Lockekonradbiju smoking history, tot al pack/day 1/2 ppd Clary Perrin cigarette use yes Clary clay smoking status Current every day smoker K erri Aydin FAMILY HISTORY Family Member Condition Mother Negative FH of Coron nathalia Artery Disease Father Negative FH of Coron nathalia Artery Disease INSURANCE PROVIDERS Payer name Policy type / Coverage type Loraine red green party ID [employer] HEALTH PLAN Medicaid [id number] ADVANCE DIRECTIVES Name Date DISCUSSED - NO DECISION MADE TREATMENT PLAN Date Name Performer Cardiology Follow up :Blood pressure today was slightly elevated. He is on Lisinopril 10mg which may be increased to 20mg. He continues on HCTZ as before. Donald Kate MD Cardiology Follow up :No further recurrence. Echo showed normal LV size and systolic function and a normal EF. Donald Kate MD Cardiology Follow up :Resolved. PFTs recently were normal. Donald Kate MD Cardiology New Patie nt [place] REVIEW:Blood pressure control is satisfactory. Continues HCTZ and lisinopril. Donald Kate MD Cardiology New Patient [place] REVIEW :Will check PFT's. Donald Kate MD Cardiology [place] REVIEW:EKG shows sinus rhythm, RVH and a right axis deviation. Will check echocardiogram. Donald Kate MD Date Name Complete Echo HISTORY OF PROCEDURES Procedure Date Procedure Name Provider Procedure Notes S tatus EKG Donald Kate MD complet ed FVC / MVV - 87868 Donald Kate MD completed FRC - 37415 Donald Kate MD comple mona SpO2 w/o 6min walk/titration Donald Kate MD completed DLCO - [id number] Donald Kate MD compl eted EKG Donald Kate MD complet ed
--- OUTSIDE RECORDS SUMMARY | 2024-10-21 01:38 | XMS_ITS | Continuity of Care Document ---
Author Organization [facility] Address [address] [place] [address] [address] [place] [address] Phone Care Team Providers Care Banding Machine Operator Name Role Phone Abimael Mejia Unavailable Unavailable Procedures Procedure Date Office/outpatient Visit, Est Office/outpatient Visit, Est Eye Exam, New Patient Advance Directives Directive Yes / No Effective Date File Name No Information Encounters Encounter Description Practice Location Reason(s) For Visit Diagnoses Date Provider Providers Copied on Encounter [place] [facility] [place] [address] [place] [address] [address], [place], [place], [id number], tel:[phone] [facility] No Information Nov-1 2-200 8 Krishnasamy Abimael. [address], [facility], [place]. tel:[phone] [place] [facility] [place] [address] [place] [address] [address], [place], [place], [id number], [place] tel:[phone] [facility] No Information Nov-0 5-200 8 Krishnasamy Abimael. [address] [address], [place], [address], [place]. tel:[phone] [facility], [address] [place] [address] [address], [place], [place], [address], [place] tel:[phone] [facility] No Information Oct-2 4-200 8 Krishnasamy Abimael. [address] [employer] [address], [address], [place]. tel:[phone] Family History Family Member Type Diagnosis Age At Onset No Information Payers Payer name Insurance type Covered republican ID Authoriza tion(s) No Information Social History Type Description Quantity Date Captured Comments Sex Male Smoking Status No Information Chief Complaint And Reason For Visit No Information Reason For Referral Reason For Referral No Information History Of Present Illness Encounter Date Complaint History Of Prese nt Illness No Information Functional Status Date Functional Assessmen t No Information Instructions Date Instruction Additional Infor mation No Information Assessments Type Assessment Date No Information Patient Care Teams Name Effective Dates (start - stop) Status Members No Information
--- OUTSIDE RECORDS SUMMARY | 2024-10-21 01:38 | XMS_ITS | Referral Summary ---
Author Organization [facility] Address [address] [place] [address] Care Team Providers Care Dock Operations Supervisor Name Role Phone Unknown, Notinfile Primary Care [...] ingestion of substance, initial encou nter 07/27/2023 Social History Tobacco Use Types Packs/Day Years Used Date Smoking Tobacco: Never Assessed [facility] Utilities Answer Date Recorded In the [...] often do you attend chur ch or holiness services? Never 07/30/2023 Do you belong to any clubs o r organizations such as denominational groups, unions, fraternal or athletic groups, or [...] place to sleep or slept in a half-way (including now)? Yes 07/30/2023 Personal Safety Answer Date Recorded Have you ever been in or are you currently in a harmful physical or emotional relationship or is someone making you feel afraid or unsafe? Denies 05/15/2024 Sex and Gender Information Value Date Recorded Sex Assigned at Not on file Legal Sex Male 3:11 AM RISK CONTROL OFFICER Gender Identity Male 07/27/2023 1:18 PM CDT Sexual Orientation Not on file Last Filed Vital Signs Vital Sign Reading Time Taken Comments Blood Pressure 165/101 05/16/2024 3:30 AM RISK CONTROL OFFICER Pulse 75 05/16/2024 3:30 AM RISK CONTROL OFFICER Temperature 36.6 C (97.9 F) 05/15/2024 8:45 PM RISK CONTROL OFFICER Respiratory Rate 17 05/16/2024 3:30 AM RISK CONTROL OFFICER Oxygen Saturation 97% 05/16/2024 3:30 AM RISK CONTROL OFFICER Inhaled Oxygen Concentration - - Weight 74.8 kg (165 lb) 05/15/2024 8:45 PM RISK CONTROL OFFICER Height 182.9 cm (6') 05/15/2024 8:45 PM RISK CONTROL OFFICER Body Mass Index 22.38 05/15/2024 8:45 PM RISK CONTROL OFFICER Plan of Treatment Not on file Insurance [facility] PLAN [place] [id number] Advance Directives For more information, please contact: [phone] * Full Code (Latest Code Status on File) Date Activated Date Inactivated Comments 07/28/2023 11:01 AM 07/30/2023 7:10 PM * Full Code Date Activated Date Inactivated Comments 07/27/2023 8:48 PM 07/28/2023 11:01 AM Care Teams Dock Operations Supervisor Relationship Specialty Start Date End Date Unknown, Notinfile PCP - General 01/15/19
[2024-10-21] MEDS: ACETAMINOPHEN 500 MG TABLET 1000 MG PO (01:42)
[2024-10-21] MEDS: KETOROLAC 30 MG/ML VIAL (*BKC) 15 MG IM (01:44)
[2024-10-21] MEDS: LIDOCAINE 5% PATCH 1 PATCH TRANSDERM (01:47)
[2024-10-21 02:06] VITALS: BP 130/99; PULSE 91; RESP 18; TEMP 36.8; O2SAT 99
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
[2024-10-21 02:26] VITALS: BP 130/99; PULSE 91; RESP 18; TEMP 36.8; O2SAT 99
== END 2024-10-21 02:01 | disposition home or self-care (01) ==
PROVIDERS: Emergency Provider Emergency Medicine
DX: S39.012A Strain of muscle, fascia and tendon of lower back, initial encounter (principal); F17.200 Nicotine dependence, unspecified, uncomplicated; Y08.02XA Assault by strike by baseball bat, initial encounter
CPT/HCPCS: 96372; 99283; A9270; J1885